=== PATIENT | female | born 2000 | race Hispanic/Latino ===

== ENCOUNTER → 2023-11-18 13:56 | Outpatient (REF) | payer BC, SELFPAY ==
[2023-11-18 15:26] LABS: Urine Albumin Trace (Neg - Trace); Urine Bilirubin Negative (Negative); Urine Character Very Cloudy (Clear); Urine Color Yellow; Urine Glucose Negative (Negative); Urine Ketone Negative (Negative); Urine Leukocyte Trace (Negative); Urine Nitrite Positive (Negative); Urine Occult Blood Negative (Negative); Urine Urobilinogen Negative (Neg - 1+)
[2023-11-18 15:52] LABS: Urine Bacteria Moderate (Negative); Urine Red Blood Cell 0-2 /HPF (0-2); Urine White Cell 40-50 /HPF (0-5)
== END ==
LOC: CLAB 13:56
PROVIDERS: ATTENDING PHYSICIAN Obstetrics & Gynecology
DX: Z34.90 Encounter for supervision of normal pregnancy, unspecified, unspecified trimester (principal)
CPT/HCPCS: 81003; 81015; 87077; 87086; 87186

== ENCOUNTER → 2024-01-24 13:09 | Outpatient (REF) | payer BC, SELFPAY ==
[2024-01-24 16:35] LABS: % Basophils 0.2 % (0-2); % Eosinophils 0.7 % (0-6); % Lymphocytes 11.8 % (20.5-51.1); % Monocytes 5.3 % (1.7-9.3); Absolute Eosinophils 0.1 10^3/uL (0-0.7); Absolute Immature Granulocytes 0.2 10^3/uL (0-0.05); Absolute Lymphocytes 1.9 10^3/uL (1.2-3.4); Absolute Monocytes 0.9 10^3/uL (0.1-0.6); Absolute Neutrophils 13.2 10^3/uL (1.4-6.5); Hemoglobin 9.5 g/dL (12.0-16.0); Mean Corp Hgb Conc. 31.7 g/dL (33.0-37.0); Mean Corpuscular Hgb 25.9 pg (27.0-31.0); Mean Corpuscular Volume 81.7 fL (81.0-99.0); Mean Platelet Volume 11.6 fL (7.4-10.4); Nucleated Red Blood Cells % 0 %; Platelet Count 273 10^3/uL (130-400); Red Blood Cell Count 3.67 10^6/uL (4.20-5.40); Red Cell Dist. Width 14.1 % (11.5-14.5); White Blood Cell Count 16.3 10^3/uL (4.8-10.8)
[2024-01-24 16:58] LABS: 1 Hour after 50gm 86 mg/dl
[2024-01-27 17:19] LABS: Syphilis/T. pallidum Ab Reflex Negative (Negative)
== END ==
LOC: REG 13:09
PROVIDERS: ATTENDING PHYSICIAN Obstetrics & Gynecology
DX: Z34.90 Encounter for supervision of normal pregnancy, unspecified, unspecified trimester (principal)
CPT/HCPCS: 36415; 82950; 85025; 86780

== ENCOUNTER → 2024-03-09 13:26 | Outpatient (REF) | payer BC, OTHER, SELFPAY ==
[2024-03-09 14:35] LABS: Hematocrit 33.8 % (37.0-47.0); Hemoglobin 10.8 g/dL (12.0-16.0); Mean Corpuscular Hgb 25.5 pg (27.0-31.0); Mean Corpuscular Volume 79.9 fL (81.0-99.0); Mean Platelet Volume 11.9 fL (7.4-10.4); Platelet Count 228 10^3/uL (130-400); Red Blood Cell Count 4.23 10^6/uL (4.20-5.40); White Blood Cell Count 16.6 10^3/uL (4.8-10.8)
[2024-03-09 14:56] LABS: Iron 62 ug/dl (37-170)
[2024-03-09 15:05] LABS: Percent Saturation 12 % (20-50); Total Iron Binding Capacity 507 ug/dl (265-497)
[2024-03-09 15:32] LABS: Ferritin 8.3 ng/ml (6.24-137)
== END ==
LOC: REG 13:26
PROVIDERS: ATTENDING PHYSICIAN Obstetrics & Gynecology
DX: E61.1 Iron deficiency (principal)
CPT/HCPCS: 36415; 82728; 83540; 83550; 85027

== ENCOUNTER 2024-04-02 21:13 | Observation (INO) | payer BC, OTHER, SELFPAY ==
[2024-04-02 21:25] VITALS: BP 115/66; BMI 35.4
[2024-04-02 22:05] LABS: Hematocrit 29.2 % (37.0-47.0); Hemoglobin 9.8 g/dL (12.0-16.0); Mean Corp Hgb Conc. 33.6 g/dL (33.0-37.0); Mean Corpuscular Hgb 25.3 pg (27.0-31.0); Mean Corpuscular Volume 75.3 fL (81.0-99.0); Mean Platelet Volume 11.6 fL (7.4-10.4); Platelet Count 281 10^3/uL (130-400); Red Blood Cell Count 3.88 10^6/uL (4.20-5.40); Red Cell Dist. Width 16.3 % (11.5-14.5); White Blood Cell Count 14.7 10^3/uL (4.8-10.8)
[2024-04-02 22:06] LABS: Urine Albumin Trace (Neg - Trace); Urine Bilirubin Negative (Negative); Urine Character Clear (Clear); Urine Color Yellow; Urine Glucose Negative (Negative); Urine Ketone Negative (Negative); Urine Leukocyte Negative (Negative); Urine Nitrite Negative (Negative); Urine Occult Blood Negative (Negative); Urine Specific Gravity 1.015 (<1.030); Urine Urobilinogen Negative (Neg - 1+)
[2024-04-02 22:22] LABS: ALT (SGPT) 14 U/L (0-35); AST (SGOT) 23 U/L (14-36); Albumin 3.3 g/dl (3.5-5.0); Alkaline Phosphatase 138 U/L (38-126); Blood Urea Nitrogen 8 mg/dl (7-17); Calcium 8.8 mg/dl (8.4-10.2); Carbon Dioxide 19 mmol/L (22-30); Chloride 108 mmol/L (98-107); Estimated Creatinine Clearance > 125 ml/min; Glucose 95 mg/dl (70-99); Potassium 3.8 mmol/L (3.5-5.1); Sodium 132 mmol/L (135-145); Total Bilirubin 0.2 mg/dl (0.2-1.3); Total Protein 6.1 g/dl (6.3-8.2); Uric Acid 4.4 mg/dl (2.5-6.2); eGFR > 60.00
[2024-04-02 22:31] LABS: Protein/creatinine Ratio 0.1; Urine Protein 9 mg/dl
== END 2024-04-02 23:09 | disposition home or self-care (01) ==
LOC: LDRP 21:13
PROVIDERS: ADMITTING PHYSICIAN Obstetrics & Gynecology
DX: O12.03 Gestational edema, third trimester (principal); Z3A.36 36 weeks gestation of pregnancy
CPT/HCPCS: 80053; 81003; 82570; 84156; 84550; 85027; G0378

== ENCOUNTER → 2024-04-05 13:41 | Outpatient (REF) | payer BC, OTHER, SELFPAY | LOC: CLAB 13:41 | PROVIDERS: ATTENDING PHYSICIAN Obstetrics & Gynecology | DX: Z34.90 Encounter for supervision of normal pregnancy, unspecified, unspecified trimester (principal) | CPT/HCPCS: 87070 ==

== ENCOUNTER 2024-05-07 13:49 | Inpatient (IN) | payer BC, OTHER, SELFPAY ==
[2024-05-07 11:30] VITALS: BMI 39.1
[2024-05-07 11:33] VITALS: BP 131/72
[2024-05-07 15:26] LABS: Hematocrit 31.7 % (37.0-47.0); Hemoglobin 10.3 g/dL (12.0-16.0); Mean Corp Hgb Conc. 32.5 g/dL (33.0-37.0); Mean Corpuscular Hgb 25.1 pg (27.0-31.0); Mean Corpuscular Volume 77.3 fL (81.0-99.0); Mean Platelet Volume 12.2 fL (7.4-10.4); Platelet Count 237 10^3/uL (130-400); Red Cell Dist. Width 18.6 % (11.5-14.5); White Blood Cell Count 14.1 10^3/uL (4.8-10.8)
[2024-05-07] MEDS: CYTOTEC 50 MICROGRAM VAG (15:33)
[2024-05-07] MEDS: CYTOTEC 50 MICROGRAM PO (21:06)
[2024-05-07] MEDS: PHENERGAN 50.5 MG IV (23:34)
[2024-05-07] MEDS: MORPHINE SULFATE 2 MG IV (23:35)
[2024-05-08] MEDS: LR 1000 IV ×2 (01:00→02:49)
[2024-05-08] MEDS: SUBLIMAZE 100 MCG EPIDURAL (01:03)
[2024-05-08] MEDS: FENTANYL/BUPIVACAINE 100 EPIDURAL (01:03)
[2024-05-08 03:27] LABS: Cord ABG Comment CORD BLOOD
[2024-05-08 03:30] LABS: B.E. Cord ABG -6.7 mMOL/L; HCO3 Cord ABG 20.2 mmol/L; PCO2 Cord ABG 44 mmHg; PO2 Cord ABG 22 mmHg; pH Cord ABG 7.27
[2024-05-08 03:34] LABS: B.E. Cord ABG -6.9 mMOL/L; HCO3 Cord ABG 22.5 mmol/L; O2 Saturation % Cord ABG 13.7 %; PCO2 Cord ABG 59 mmHg; PO2 Cord ABG 10 mmHg; pH Cord ABG 7.19
[2024-05-08] MEDS: ZITHROMAX INFUSION 250 IV (03:50)
[2024-05-08] MEDS: TORADOL 15 MG IV ×4 (05:31→23:00)
[2024-05-08] MEDS: PITOCIN 30 UNITS/NSS 500 ML IV (09:38)
[2024-05-08] MEDS: PRENATAL PLUS 1 TABLET PO (11:15)
[2024-05-08] MEDS: FEOSOL 325 MG PO (11:15)
[2024-05-08] MEDS: TORADOL IV (17:28)
[2024-05-09 05:59] LABS: Hemoglobin 9.1 g/dL (12.0-16.0); Mean Corp Hgb Conc. 32.5 g/dL (33.0-37.0); Mean Corpuscular Hgb 25.8 pg (27.0-31.0); Mean Corpuscular Volume 79.3 fL (81.0-99.0); Mean Platelet Volume 12.4 fL (7.4-10.4); Platelet Count 230 10^3/uL (130-400); Red Blood Cell Count 3.53 10^6/uL (4.20-5.40); Red Cell Dist. Width 18.5 % (11.5-14.5); White Blood Cell Count 19.6 10^3/uL (4.8-10.8)
[2024-05-09] MEDS: MOTRIN 600 MG PO ×3 (06:28→20:11)
[2024-05-09] MEDS: SENOKOT-S 1 TABLET PO (06:29)
[2024-05-09] MEDS: FEOSOL 325 MG PO (07:38)
[2024-05-09] MEDS: PRENATAL PLUS 1 TABLET PO (07:38)
[2024-05-09] MEDS: TYLENOL 650 MG PO ×2 (08:32→16:47)
[2024-05-10] MEDS: FEOSOL 325 MG PO (07:54)
[2024-05-10] MEDS: PRENATAL PLUS 1 TABLET PO (07:54)
[2024-05-10] MEDS: MOTRIN 600 MG PO ×2 (08:40→16:56)
[2024-05-10] MEDS: TYLENOL 650 MG PO (08:40)
[2024-05-11] MEDS: MOTRIN 600 MG PO (00:26)
[2024-05-11] MEDS: FEOSOL 325 MG PO (07:58)
[2024-05-11] MEDS: PRENATAL PLUS 1 TABLET PO (07:58)
[2024-05-11] MEDS: SENOKOT-S 1 TABLET PO (07:59)
[2024-05-11 12:09] LABS: Syphilis/T. pallidum Ab Reflex Negative (Negative)
[2024-05-11] MEDS: TYLENOL 650 MG PO (12:39)
== END 2024-05-11 14:00 | disposition home or self-care (01) | DRG 788 ==
LOC: LDRP 13:49
PROVIDERS: ADMITTING PHYSICIAN Obstetrics & Gynecology
PROC: 3E0P7VZ Introduction of Hormone into Female Reproductive, Via Natural or Artificial Opening (ICD-10-PCS; 2024-05-07)
PROC: 3E0DXGC Introduction of Other Therapeutic Substance into Mouth and Pharynx, External Approach (ICD-10-PCS; 2024-05-07)
PROC: 10D00Z1 Extraction of Products of Conception, Low, Open Approach (ICD-10-PCS; 2024-05-08)
PROC: 6A550ZT Pheresis of Cord Blood Stem Cells, Single (ICD-10-PCS; 2024-05-08)
DX: O76 Abnormality in fetal heart rate and rhythm complicating labor and delivery (principal); O48.0 Post-term pregnancy; Z3A.41 41 weeks gestation of pregnancy; Z37.0 Single live birth; O90.81 Anemia of the puerperium; D64.9 Anemia, unspecified; O99.52 Diseases of the respiratory system complicating childbirth; J45.990 Exercise induced bronchospasm; Z83.3 Family history of diabetes mellitus; Z82.49 Family history of ischemic heart disease and other diseases of the circulatory system; Z91.040 Latex allergy status; Z14.8 Genetic carrier of other disease
CPT/HCPCS: 88307; 59025; 76815; 82803; 85027; 86780; 86850; 86900; 86901

== ENCOUNTER 2025-05-12 21:13 | Emergency (ER) | payer BC, OTHER, SELFPAY ==
[2025-05-12 21:15] VITALS: BP 123/69
[2025-05-12 21:37] LABS: Hematocrit 35.2 % (37.0-47.0); Hemoglobin 11.6 g/dL (12.0-16.0); Mean Corp Hgb Conc. 33.0 g/dL (33.0-37.0); Mean Corpuscular Volume 79.8 fL (81.0-99.0); Nucleated Red Blood Cells % 0 %; Platelet Count 281 10^3/uL (130-400); Red Cell Dist. Width 13.2 % (11.5-14.5)
[2025-05-12 21:50] VITALS: BMI 25.6
--- NOTE | 2025-05-12 22:09 | ED.GENMED ---
History of Present Illness
<GABRIELLA Acuña - Last Filed: 05/13/25 01:06>
General
Chief Complaint: Problems
Source: patient
Exam Limitations: none
Time Seen by Provider: 05/12/25 21:57
History of Present Illness
History of Present Illness:
Patient is a 24 y/o F, , who is about 11-12 weeks presents to the ED for vaginal bleeding x 4 days. Patient states the bleeding began 4 days ago as intermittent spotting and was a brown color. The bleeding gradually increased in
volume over the past 3 days along with becoming more bright red. Yesterday the patient noticed a 1cm x 1cm clot and a larger clot today about 3cm x 3cm which prompted her to come to ED for evaluation. Bleeding is accompanied by intermittent RLQ and
LLQ pain rated 6/10 and abdominal cramping. Patient follows with [facility] and has an appoint for her first trimester US 05/29/25. Patient has a 1 year old daughter, born without complication by section at 42 weeks after
attempted induction. Patient denies fever, headache, dizziness, weight loss, vomiting, nausea, chest pain, palpitations, SOB, dysuria, and lower extremity swelling.
Past History
<GABRIELLA Acuña - Last Filed: 05/13/25 01:06>
Past History
ED Past Medical History: Asthma
ED Past Surgical History: None
Social History
Tobacco: Non-smoker
Drug: Marijuana
Living: with family
Review of Systems
<GABRIELLA Acuña - Last Filed: 05/13/25 01:06>
Review of Systems
Allergies reviewed?: Yes
Constitutional: Denies fever or weight loss
Respiratory: Denies trouble breathing
Cardiac: Denies chest pain or palpitations
ABD/GI: Reports abdominal pain; Denies nausea or vomiting
: Reports bleeding; Denies dysuria
Neurological: Denies dizzy, headache or weakness
Phy Exam
<Cleo Cotto [facility] - Last Filed: 05/13/25 01:06>
General Physical Exam
General Presentation: well appearing and no apparent distress
General age: appears stated age
General Skin: warm and dry
General Habitus: normal
General Mental: alert
General Hydration: appears well hydrated
Cardiovascular Exam
Cardiovascular Exam: regular rate/rhythm, no edema and no murmur
Heart Sounds: normal
Pulmonary Exam
Pulmonary Exam: lungs clear
Gastrointestinal Exam
Gastrointestinal Exam: normal bowel sounds, soft and non distended
Palpation: left upper quadrant: No tenderness, left lower quadrant: Moderate tenderness, right upper quadrant: No tenderness and right lower quadrant: Moderate tenderness
Abdominal Scars: horizontal suprapubic ( section )
Course
<Cleo Cotto [facility] - Last Filed: 05/13/25 01:06>
Orders/Labs/Results
Orders:
Orders
05/12/25 21:17
US 1st Trimester Urgent
Comment:
Reason For Exam: bleeding
05/12/25 21:29
Type+Screen Urgent
Beta HCG Quantitative Urgent
Is this a screen?: No
Complete Blood Count/With Diff Urgent
Abnormal Lab Results
05/12/25
21:29
WBC 14.3 H 10^3/uL
(4.8-10.8)
Hgb 11.6 L g/dL
(12.0-16.0)
Hct 35.2 L %
(37.0-47.0)
MCV 79.8 L fL
(81.0-99.0)
MCH 26.3 L pg
(27.0-31.0)
MPV 11.2 H fL
(7.4-10.4)
Absolute Neuts (auto) 10.2 H 10^3/uL
(1.4-6.5)
Absolute Monos (auto) 0.7 H 10^3/uL
(0.1-0.6)
05/12/25 21:29
Vital Signs
Initial and Last Documented VS:
Initial Vital Signs
Temp Pulse Resp BP Pulse Ox
98.2 F 82 16 123/69 95
05/12/25 21:15 05/12/25 21:15 05/12/25 21:15 05/12/25 21:15 05/12/25 21:15
Last Documented Vital Signs
Temp Pulse Resp BP Pulse Ox
98.2 F 71 17 113/76 99
05/12/25 21:15 05/12/25 23:46 05/12/25 23:46 05/12/25 23:46 05/12/25 23:46
Information
Weeks gestation: Weeks: (9)
Location: Location: (uterus )
<Elias Matute, DO - Last Filed: 05/13/25 00:41>
Orders/Labs/Results
Orders:
Orders
05/12/25 21:17
US 1st Trimester Urgent
Comment:
Reason For Exam: bleeding
05/12/25 21:29
Type+Screen Urgent
Beta HCG Quantitative Urgent
Is this a screen?: No
Complete Blood Count/With Diff Urgent
Abnormal Lab Results
05/12/25
21:29
WBC 14.3 H 10^3/uL
(4.8-10.8)
Hgb 11.6 L g/dL
(12.0-16.0)
Hct 35.2 L %
(37.0-47.0)
MCV 79.8 L fL
(81.0-99.0)
MCH 26.3 L pg
(27.0-31.0)
MPV 11.2 H fL
(7.4-10.4)
Absolute Neuts (auto) 10.2 H 10^3/uL
(1.4-6.5)
Absolute Monos (auto) 0.7 H 10^3/uL
(0.1-0.6)
05/12/25 21:29
Vital Signs
Initial and Last Documented VS:
Initial Vital Signs
Temp Pulse Resp BP Pulse Ox
98.2 F 82 16 123/69 95
05/12/25 21:15 05/12/25 21:15 05/12/25 21:15 05/12/25 21:15 05/12/25 21:15
Last Documented Vital Signs
Temp Pulse Resp BP Pulse Ox
98.2 F 71 17 113/76 99
05/12/25 21:15 05/12/25 23:46 05/12/25 23:46 05/12/25 23:46 05/12/25 23:46
<GABRIELLA Acuña - Last Filed: 05/13/25 01:06>
MDM/Problems Addressed
Differential Diagnosis Includes:
Differential Diagnosis includes but is not limited to:
-Spotting, hemorrhage in early
-ectopic
-threatened
-early pregancy loss
MDM/Problems Addressed:
1. 1st trimester vaginal bleeding - incomplete miscarriage
-beta hCG quantitative, blood type and screen, Ultrasound 1st trimester
-Tylenol for cramping, abdominal pain
- Follow up with OB
<GABRIELLA Acuña - Last Filed: 05/13/25 01:06>
*Pulse Oximetry
SaO2: 95
Oxygen Mode of Delivery: Room air
<Elias Matute DO - Last Filed: 05/13/25 00:41>
*Radiology
Radiology exam reviewed: radiology read reviewed
*Pulse Oximetry
Patient hypoxic: no
*Critical Care Note
Total Time (30-74mins, 75-104mins- exclusive of procedures): Not Applicable
ED Attending Note
<GABRIELLA Acuña - Last Filed: 05/13/25 01:06>
-
Portions of this chart may have been created with voice recognition software.� Occasional wrong word or��sound alike� substitutions may have occurred due to the inherent limitations of voice recognition software.
<Elias Matute DO - Last Filed: 05/13/25 00:41>
ED Attending Note
Patient seen and examined by attending physician: Yes
I performed a history and physical exam of patient and discussed management with resident, I reviewed resident's note and agree with documented findings and plan of care.: Yes
ED Attending Note:
Note:
CHIEF COMPLAINT(S)
Vaginal bleeding and cramping in early .
HISTORY OF PRESENT ILLNESS
The patient is a 24-year-old female with a history of vaginal bleeding and cramping. The symptoms began on , and the bleeding has become heavier today. She discovered she was approximately nine weeks ago. The patient does not report
having an patient admitting clerk-housing liaison whom she regularly visits. Upon investigation, there is no evidence of an ectopic , which is a significant concern in early bleeding due to its potential life-threatening nature. An ultrasound
indicates a non-viable , as there was a pole visible, but no heartbeat detected, suggesting miscarriage, which explains the bleeding.
Additional conversation with the patient revealed that she has a previous healthy resulting in a child who is now one year old, which offers reassurance about her future reproductive outlook. The patient is concerned about the commonality
and implications of miscarriages.
SOCIAL DETERMINANTS AFFECTING HEALTH
The patient mentioned that her boyfriend is aware of the and is currently caring for their wtl-cegp-win child. There was no indication of any issues, but the context implies some family support.
PLAN
1. Advise the patient to use acetaminophen for cramping and to ensure adequate fluid intake.
2. Instruct the patient to follow up with her healthcare provider or an patient admitting clerk-housing liaison to confirm the complete resolution of the miscarriage and ensure that there are no retained products of conception.
3. Provide the patient with a copy of all medical reports for her reference and future consultation.
4. Discuss anticipated progression of symptoms, including the possibility of increased bleeding and cramping as the gestational sac is passed.
DIFFERENTIAL DIAGNOSIS
The Differential Diagnosis includes, in no particular order and is not limited to:
1. Miscarriage
2. Ectopic
3. Subchorionic hemorrhage
4. Molar
5. Infection (e.g., pelvic inflammatory disease)
6. Cervical polyps
7. Cervical insufficiency
8. Sexual intercourse-related trauma
9. Placental abruption (less likely due to gestational age)
10. Coagulation disorders
Exam
CONSTITUTIONAL Vital signs reviewed, Patient alert and oriented to person, place and time. Well-appearing
HEAD atraumatic, normocephalic.
EYES eyelids normal to inspection, Extraocular muscles intact, Conjunctiva normal, Sclera normal.
NECK normal range of motion, Trachea midline, no jugular venous distention.
RESP no respiratory distress
BACK No obvious deformities
Abdomen nondistended
UPPER EXTREMITY Gross Range of motion normal, gross motor strength normal
LOWER EXTREMITY Gross range of motion normal, Gross motor strength normal
NEURO Speech normal, No focal motor deficits include, Julio Cesar coma scale 15, Memory normal, Cranial Nerves intact to screening exam.
SKIN Skin warm, dry, and normal in color.
PSYCHIATRIC Patient oriented to person place and time, Normal affect.
Disposition:
SUMMARY OF ENCOUNTER
The patient, a 24-year-old female, presented to the emergency department with vaginal bleeding and cramping during early . An ultrasound confirmed a non-viable with a pole, but no heartbeat detected, suggestive of a
miscarriage. There is no clinical evidence of ectopic . The patients blood type is Rh positive, which does not necessitate Rh immunoglobulin administration.
DISPOSITION
Discharge with recommendations for outpatient follow-up.
ASSESSMENT
Non-viable intrauterine with impending miscarriage.
PLAN
1. Recommend use of acetaminophen for cramping.
2. Advise ensuring adequate fluid intake to maintain hydration.
3. Instruct the patient to follow up with her healthcare provider or an patient admitting clerk-housing liaison to ensure complete resolution of the miscarriage and to check for retained products of conception.
4. Discuss the normal progression of symptoms, including the possibility of increased bleeding and cramping.
5. Provide the patient with a copy of all medical reports for future consultation.
INDEPENDENT REVIEW OF LABS AND INTERPRETATION OF TESTS
My independent review of the ultrasound confirms a non-viable due to the absence of heart tones.
PATIENT EDUCATION AND COUNSELING
Discussed the normalcy of miscarriages, which occur in approximately 15-20% of pregnancies. Emphasized that a miscarriage does not infer future reproductive issues. The patient was reassured given the history of a previous healthy .
FOLLOW-UP INSTRUCTIONS
The patient is advised to schedule an outpatient follow-up with an patient admitting clerk-housing liaison to confirm complete miscarriage resolution.
MEDICATION RECONCILIATION
The patient was advised to use acetaminophen for cramping.
MEDICAL DECISION MAKING
-Complexity of Data Reviewed: Chronic conditions affecting care include the patients current symptoms and obstetric history. Differential diagnosis includes miscarriage, ectopic , subchorionic hemorrhage, molar , infection,
cervical polyps, cervical insufficiency, trauma-related bleeding, placental abruption, and coagulation disorders.
-Data:
Category 1
Ultrasound performed indicated a non-viable with no heart tones.
Category 2
None noted.
Category 3
Discussion of management with healthcare provider for outpatient follow-up.
DIAGNOSIS
Missed (O02.1)
Vaginal bleeding in early (O20.0)
Discharge Plan
Departure
Patient Disposition: Home (Routine Discharge)
Date of Disposition: 05/13/25
Time of Disposition: 00:36
Patient with high blood pressure during this ER visit?: No
Discharge Problem:
demise, Incomplete miscarriage
Instructions: Miscarriage (DC)
Prescriptions:
No Action
capsule
1 cap PO DAILY
iron
1 cap PO DAILY
albuterol-budesonide 90-80 mcg/actuation Hfa Aerosol Inhaler
INHALATION
acetaminophen 325 mg Tablet
650 mg PO Q4HPRN PRN (Reason: mild pain) Qty: 0 0RF
sennosides-docusate sodium [Stool Softener-Laxative] 8.6-50 mg Tablet
1 tab PO DAILYPRN PRN (Reason: constipation) Qty: 0 0RF
ibuprofen 600 mg Tablet
600 mg PO Q6HPRN PRN (Reason: cramps) Qty: 40 0RF
simethicone 80 mg Tablet,Chewable
80 mg PO TIDPRN PRN (Reason: flatulence) Qty: 0 0RF
Referrals:
NONE,* [Family Provider, Internal Medicine]
Activity Restrictions/Additional Instructions:
Please see your patient admitting clerk in the next 3 days for follow-up and reevaluation. Use Tylenol for cramping and drink plenty of fluids. Return for persistent intractable bleeding, lightheadedness, passing out episode or any other concerns.
Interventions
Interventions:
*Risk Screen - Suicide Last Done: 05/12/25 21:15
*General Assessment Last Done: 05/12/25 21:15
*Neglect/Abuse Screening Last Done: 05/12/25 21:15
*ED- Fall Risk Assessment Last Done: 05/12/25 21:51
*ED COVID-19 Vaccine History Last Done: 05/12/25 21:51
*Nursing Disposition Last Done: 05/13/25 00:44
ED-Female Genitourinary Assessment Last Done: 05/12/25 21:50
Discharge Date and Time
Discharge Date/Time: 05/13/25 00:45
Print Language: FAROESE
[2025-05-12 22:34] VITALS: BP 122/78
[2025-05-12 23:17] LABS: Beta HCG Quantitative 57378.00 mIU/ml
[2025-05-12 23:46] VITALS: BP 113/76
== END 2025-05-13 00:45 | disposition home or self-care (01) ==
LOC: EMR 21:13
PROVIDERS: Emergency Medicine; EMERGENCY PHYSICIAN Emergency Medicine
DX: O03.4 Incomplete spontaneous abortion without complication (principal); J45.909 Unspecified asthma, uncomplicated
CPT/HCPCS: 99284; 76801; 84702; 85025; 86850; 86900; 86901

== ENCOUNTER 2025-05-14 18:48 | Emergency (ER) | payer BC, OTHER, SELFPAY ==
[2025-05-14 18:54] VITALS: BP 122/76
[2025-05-14 19:28] LABS: Hematocrit 34.5 % (37.0-47.0); Hemoglobin 11.3 g/dL (12.0-16.0); Mean Corp Hgb Conc. 32.8 g/dL (33.0-37.0); Mean Corpuscular Volume 78.8 fL (81.0-99.0); Nucleated Red Blood Cells % 0 %; Platelet Count 261 10^3/uL (130-400); Red Cell Dist. Width 13.1 % (11.5-14.5)
[2025-05-14 19:57] LABS: HCG, Serum Qualitative Screen Positive
[2025-05-14 20:04] LABS: ALT (SGPT) 11 U/L (0-35); AST (SGOT) 18 U/L (14-36); Albumin 4.6 g/dl (3.5-5.0); Alkaline Phosphatase 66 U/L (38-126); Blood Urea Nitrogen 12 mg/dl (7-17); Calcium 9.8 mg/dl (8.4-10.2); Carbon Dioxide 20 mmol/L (22-30); Chloride 107 mmol/L (98-107); Glucose 119 mg/dl (70-99); Potassium 4.5 mmol/L (3.5-5.1); Sodium 138 mmol/L (135-145); Total Protein 7.5 g/dl (6.3-8.2); eGFR > 60.00
--- NOTE | 2025-05-14 20:05 | ED.GENMED ---
History of Present Illness
General
Chief Complaint: Problems
Source: patient
Exam Limitations: none
Time Seen by Provider: 05/14/25 20:01
Nursing documentation reviewed up to this point in time: agreed with
History of Present Illness
History of Present Illness:
Patient to ED wt complaint of vaginal bleeding and severe pelvic cramping. She is approx 10 weeks . SHe was seen in ED yesterday due to bleeding. US confirmed demise. She returns tonight due to cramping.
Past History
Past History
ED Past Medical History: Asthma
ED Past Surgical History: None
Social History
Tobacco: Non-smoker
Drug: Marijuana
Living: with family
Review of Systems
Review of Systems
Allergies reviewed?: Yes
All Other Systems: ROS reviewed and negative except as documented in HPI and ROS
Constitutional: Reports no symptoms
EENT: Reports no symptoms
Respiratory: Reports no symptoms
Cardiac: Reports no symptoms
ABD/GI: Reports no symptoms
: Reports bleeding and other (pelvic cramping)
Musculoskeletal: Reports no symptoms
Skin: Reports no symptoms
Neurological: Reports no symptoms
Psychiatric: Reports no symptoms
Phy Exam
General Physical Exam
General Presentation: moderate distress
General age: appears stated age
General Skin: warm and dry
General Habitus: normal
General Mental: alert
Gastrointestinal Exam
Gastrointestinal Exam: normal bowel sounds, non tender, soft, no organomegaly, no pulsatile mass and non distended
Genitourinary Exam Female
Vaginal Exam: blood
Vaginal Bleeding: moderate
Musculoskeletal Exam
Musculoskeletal Exam: full ROM and neuro vasc intact
Skin Exam
Skin Exam: normal color, warm/dry and no rash
Psychiatric Exam
Psychiatric Exam: normal mood/affect
Course
Orders/Labs/Results
Orders:
Orders
05/14/25 18:56
Test Result ONCE
05/14/25 19:03
Beta HCG Quantitative Urgent
Is this a screen?: No
Comment: ADDON
Complete Blood Count/With Diff Urgent
Comprehensive Metabolic Panel Urgent
HCG, Serum Qualitative Screen Urgent
05/14/25 20:02
Add On- LAB Urgent
Tests Added?: serum HCG quantitative
US Transvaginal Only Urgent
Reason For Exam: bleeding, cramping
05/14/25 20:03
HYDROmorphone [Dilaudid] 0.5 mg IV NOW STA
05/14/25 20:04
0.9% Sodium Chloride 1000 ml [Nss] 1,000 ml IV BOLUS
Ondansetron Injectable [Zofran] 4 mg IV NOW STA
05/14/25 22:31
HYDROmorphone [Dilaudid] 0.25 mg IV NOW STA
Abnormal Lab Results
05/14/25
19:03
WBC 15.3 H 10^3/uL
(4.8-10.8)
Hgb 11.3 L g/dL
(12.0-16.0)
Hct 34.5 L %
(37.0-47.0)
MCV 78.8 L fL
(81.0-99.0)
MCH 25.8 L pg
(27.0-31.0)
MCHC 32.8 L g/dL
(33.0-37.0)
MPV 11.6 H fL
(7.4-10.4)
Abs Immat Gran (auto) 0.1 H 10^3/uL
(0-0.05)
Absolute Neuts (auto) 11.0 H 10^3/uL
(1.4-6.5)
Carbon Dioxide 20 L mmol/L
(22-30)
Creatinine 0.5 L mg/dL
(0.6-1.0)
Glucose 119 H mg/dl
(70-99)
05/14/25 19:03
05/14/25 19:03
Vital Signs
Initial and Last Documented VS:
Initial Vital Signs
Temp Pulse Resp BP Pulse Ox
98 F 79 16 122/76 100
05/14/25 18:54 05/14/25 18:54 05/14/25 18:54 05/14/25 18:54 05/14/25 18:54
Last Documented Vital Signs
Temp Pulse Resp BP Pulse Ox
98 F 72 18 109/74 100
05/14/25 18:54 05/14/25 22:29 05/14/25 22:29 05/14/25 22:29 05/14/25 22:29
Information
Weeks gestation: N/A
Location: N/A
*Pulse Oximetry
SaO2: 100
Oxygen Mode of Delivery: Room air
Patient hypoxic: no
*Critical Care Note
Total Time (30-74mins, 75-104mins- exclusive of procedures): Not Applicable
Update Note
Update Note:
Patient to ED wt complaint of severe cramping. SHe is approx 10 weeks , bleeding started yesterday. demise confirmed by US last PM.SHe was given IV fluids and dilaudid in ED with relief of her pain. US report reviewed with Dr. Irizarry,
as well as lab findings. HCG declining. Will discharge home tonight with short course of pain medication and she will followup with Dr. Irizarry in the office on as scheduled. Given instructions on s/s to reutrn to ED and she is agreeable to
plan.
ED Attending Note
-
Portions of this chart may have been created with voice recognition software.� Occasional wrong word or��sound alike� substitutions may have occurred due to the inherent limitations of voice recognition software.
Discharge Plan
Departure
Patient Disposition: Home (Routine Discharge)
Date of Disposition: 05/14/25
Time of Disposition: 22:20
Patient with high blood pressure during this ER visit?: No
Condition: Good
Covid-19: Not Applicable
Discharge Problem:
Miscarriage
Instructions: Miscarriage (DC)
Prescriptions:
New
oxycodone 5 mg capsule
5 mg PO Q4H PRN (Reason: Pain) Qty: 12 0RF
No Action
capsule
1 cap PO DAILY
iron
1 cap PO DAILY
albuterol-budesonide 90-80 mcg/actuation Hfa Aerosol Inhaler
INHALATION
acetaminophen 325 mg Tablet
650 mg PO Q4HPRN PRN (Reason: mild pain) Qty: 0 0RF
sennosides-docusate sodium [Stool Softener-Laxative] 8.6-50 mg Tablet
1 tab PO DAILYPRN PRN (Reason: constipation) Qty: 0 0RF
ibuprofen 600 mg Tablet
600 mg PO Q6HPRN PRN (Reason: cramps) Qty: 40 0RF
simethicone 80 mg Tablet,Chewable
80 mg PO TIDPRN PRN (Reason: flatulence) Qty: 0 0RF
Referrals:
NONE,* [Family Provider, Internal Medicine]
Mohini Irizarry MD [Active, Gynecology] - Keep scheduled appt
Activity Restrictions/Additional Instructions:
Return to the emergency department immediately for any changes in/worsening of your symptoms.
Interventions
Interventions:
ED-Female Genitourinary Assessment Last Done: 05/14/25 19:40
Discharge Date and Time
Print Language: AMHARIC
[2025-05-14] MEDS: NSS 1000 IV (20:18)
[2025-05-14] MEDS: ZOFRAN 4 MG IV (20:18)
[2025-05-14] MEDS: DILAUDID 0.5 MG IV (20:18)
[2025-05-14 21:05] LABS: Beta HCG Quantitative 32117.00 mIU/ml
[2025-05-14 22:29] VITALS: BP 109/74
[2025-05-14] MEDS: DILAUDID 0.25 MG IV (22:33)
== END 2025-05-14 22:38 | disposition home or self-care (01) ==
LOC: EMR 18:48
PROVIDERS: EMERGENCY PHYSICIAN Emergency Medicine
DX: O03.9 Complete or unspecified spontaneous abortion without complication (principal); Z3A.10 10 weeks gestation of pregnancy; J45.909 Unspecified asthma, uncomplicated
CPT/HCPCS: 99284; 96374; 96375; 96376; 96361; 76817; 80053; 84702; 84703; 85025

== ENCOUNTER 2025-05-16 02:08 | Emergency (ER) | payer BC, OTHER, SELFPAY ==
[2025-05-16 02:13] VITALS: BP 134/77
[2025-05-16] MEDS: ZOFRAN 4 MG IV (02:38)
[2025-05-16] MEDS: DILAUDID 0.5 MG IV ×3 (02:38→03:57)
[2025-05-16 02:42] LABS: Hematocrit 35.5 % (37.0-47.0); Hemoglobin 11.4 g/dL (12.0-16.0); Mean Corp Hgb Conc. 32.1 g/dL (33.0-37.0); Mean Corpuscular Volume 78.0 fL (81.0-99.0); Nucleated Red Blood Cells % 0 %; Platelet Count 291 10^3/uL (130-400); Red Cell Dist. Width 13.2 % (11.5-14.5)
[2025-05-16 02:43] VITALS: BP 120/75
[2025-05-16 03:00] VITALS: BP 140/85
[2025-05-16 03:04] LABS: ALT (SGPT) 12 U/L (0-35); AST (SGOT) 17 U/L (14-36); Albumin 4.7 g/dl (3.5-5.0); Alkaline Phosphatase 63 U/L (38-126); Blood Urea Nitrogen 10 mg/dl (7-17); Calcium 9.9 mg/dl (8.4-10.2); Carbon Dioxide 19 mmol/L (22-30); Chloride 110 mmol/L (98-107); Glucose 100 mg/dl (70-99); Potassium 3.7 mmol/L (3.5-5.1); Sodium 139 mmol/L (135-145); Total Protein 7.6 g/dl (6.3-8.2); eGFR > 60.00
[2025-05-16 03:21] LABS: Beta HCG Quantitative 29802.00 mIU/ml
[2025-05-16] MEDS: TORADOL 15 MG IV (03:30)
[2025-05-16 04:00] VITALS: BP 107/70
--- NOTE | 2025-05-16 04:17 | ED.GENMED ---
History of Present Illness
General
Chief Complaint: Problems
Source: patient
Exam Limitations: none
Time Seen by Provider: 05/16/25 02:23
Nursing documentation reviewed up to this point in time: agreed with
History of Present Illness
History of Present Illness:
24-year-old female presenting to the emergency department today roughly 10 weeks with ongoing miscarriage diagnosed during last 2 visits here to the ER last year yesterday showing demise on ultrasound. Has had ongoing severe pain. Bleeding
has decreased. No contents were seen.
Past History
Past History
ED Past Medical History: Asthma
ED Past Surgical History: None
Social History
Tobacco: Non-smoker
Drug: Marijuana
Living: with family
Review of Systems
Review of Systems
Allergies reviewed?: Yes
All Other Systems: ROS reviewed and negative except as documented in HPI and ROS
Phy Exam
Physical Exam
Physical Exam:
GENERAL: Alert , patient yelling in pain
EYE: pupils equal and reactive
NECK: Supple, no significant adenopathy.
ENT: o/p clr, mmm.
CARDIAC: Regular rate and rhythm .
LUNGS: Clear breath sounds bilaterally, no acute respiratory distress, no wheezes/rales/rhonchi
ABDOMEN: Soft, without focal tenderness, no r/g, no cvat
NEUROLOGICAL: Alert and oriented, no focal neuro deficits
SKIN: Warm and dry, skin intact.
MUSCULOSKELETAL: No edema, well perfused.
PSYCH: Normal and appropriate interaction.
Course
Orders/Labs/Results
Orders:
Orders
05/16/25 02:24
Beta HCG Quantitative Urgent
Is this a screen?: No
Comment: pt is 10 weeks , miscarrying
Complete Blood Count/With Diff Urgent
Comprehensive Metabolic Panel Urgent
05/16/25 02:32
HYDROmorphone [Dilaudid] 0.5 mg IV NOW STA
Ondansetron Injectable [Zofran] 4 mg IV NOW STA
05/16/25 02:54
HYDROmorphone [Dilaudid] 0.5 mg IV NOW STA
05/16/25 02:55
Type+Screen Urgent
BBK Wristband Number:
05/16/25 03:17
Ketorolac [Toradol] 15 mg IV NOW STA
05/16/25 03:53
HYDROmorphone [Dilaudid] 0.5 mg IV NOW STA
Abnormal Lab Results
05/16/25
02:24
WBC 15.0 H 10^3/uL
(4.8-10.8)
Hgb 11.4 L g/dL
(12.0-16.0)
Hct 35.5 L %
(37.0-47.0)
MCV 78.0 L fL
(81.0-99.0)
MCH 25.1 L pg
(27.0-31.0)
MCHC 32.1 L g/dL
(33.0-37.0)
MPV 11.1 H fL
(7.4-10.4)
Absolute Neuts (auto) 9.4 H 10^3/uL
(1.4-6.5)
Absolute Lymphs (auto) 4.4 H 10^3/uL
(1.2-3.4)
Absolute Monos (auto) 0.9 H 10^3/uL
(0.1-0.6)
Chloride 110 H mmol/L
(98-107)
Carbon Dioxide 19 L mmol/L
(22-30)
Glucose 100 H mg/dl
(70-99)
05/16/25 02:24
05/16/25 02:24
Vital Signs
Initial and Last Documented VS:
Initial Vital Signs
Pulse Resp BP Pulse Ox
67 20 134/77 100
05/16/25 02:13 05/16/25 02:13 05/16/25 02:13 05/16/25 02:13
Last Documented Vital Signs
Pulse Resp BP Pulse Ox
67 20 107/70 100
05/16/25 02:13 05/16/25 02:13 05/16/25 04:00 05/16/25 04:18
Information
Weeks gestation: Weeks: (10)
Location: Location:
MDM/Problems Addressed
MDM/Problems Addressed:
24-year-old female presenting to the emergency department today with concerns of ongoing pelvic pain in setting of miscarriage. Bleeding decreasing today. Patient upon arrival labs were obtained showing white count that was elevated but unchanged
from previous decreasing hCG level. Was given multiple doses of Dilaudid Case was then discussed with OB concerning the patient's ongoing significant discomfort.
OB saw the patient did a pelvic examination and removed the contents that was stuck in the cervix. Patient had significant and rapid improvement of symptoms at that time. Stable for outpatient management at this point. Return precautions
given.
*Pulse Oximetry
SaO2: 100
Oxygen Mode of Delivery: Room air
Patient hypoxic: no (100)
*Critical Care Note
Total Time (30-74mins, 75-104mins- exclusive of procedures): Not Applicable
ED Attending Note
-
Portions of this chart may have been created with voice recognition software.� Occasional wrong word or��sound alike� substitutions may have occurred due to the inherent limitations of voice recognition software.
Discharge Plan
Departure
Patient Disposition: Home (Routine Discharge)
Date of Disposition: 05/16/25
Time of Disposition: 04:55
Patient with high blood pressure during this ER visit?: No
Condition: Good
Covid-19: Not Applicable
Discharge Problem:
Miscarriage
Instructions: Miscarriage (DC)
Prescriptions:
No Action
capsule
1 cap PO DAILY
iron
1 cap PO DAILY
albuterol-budesonide 90-80 mcg/actuation Hfa Aerosol Inhaler
INHALATION
acetaminophen 325 mg Tablet
650 mg PO Q4HPRN PRN (Reason: mild pain) Qty: 0 0RF
sennosides-docusate sodium [Stool Softener-Laxative] 8.6-50 mg Tablet
1 tab PO DAILYPRN PRN (Reason: constipation) Qty: 0 0RF
ibuprofen 600 mg Tablet
600 mg PO Q6HPRN PRN (Reason: cramps) Qty: 40 0RF
simethicone 80 mg Tablet,Chewable
80 mg PO TIDPRN PRN (Reason: flatulence) Qty: 0 0RF
oxycodone 5 mg capsule
5 mg PO Q4H PRN (Reason: Pain) Qty: 12 0RF
Referrals:
NONE,* [Family Provider, Internal Medicine]
Activity Restrictions/Additional Instructions:
You came to the emergency department today with concerns of pelvic discomfort in setting of miscarriage. You had an door furring installer see you that removed the contents. Please follow-up closely as an outpatient. Return for any worsening, new or
concerning symptoms.
Interventions
Interventions:
*Risk Screen - Suicide Last Done: 05/16/25 02:19
*Neglect/Abuse Screening Last Done: 05/16/25 02:19
*ED- Fall Risk Assessment Last Done: 05/16/25 02:19
*ED COVID-19 Vaccine History Last Done: 05/16/25 02:19
ED-Female Genitourinary Assessment Last Done: 05/16/25 02:30
Discharge Date and Time
Print Language: SERBIAN
--- NOTE | 2025-05-16 07:45 | CON.MD ---
Consultation - Medical
-
24yo who should be 10+ weeks presented to the ER today due to severe cramping that started around 1AM. She has known miscarriage diagnosed earlier this week. She was seen in the ER twice in the last week due to bleeding. Most recently was 05/14.
U/S at that time showed what appears to be a gestational sac in the CRISTOBAL/upper cervix. She was having heavy bleeding on Tuesday/Tuesday but now bleeding has decreased, her main complaint is the pain. Per mom and nurse patient has been writhing around
in the bed and not responding to dilaudid or Toradol.
PMHx:Asthma
PSHx: C/S x1
POBHx: 04/2024: C/S for NRFHT
SHx: social etoh, no ill/tob
FHx: PGM- DM, HTN
Meds: Albuterol inh prn
All: NKDA
ROS Per HPI
Vitals: see below
Gen: moving around, moaning in bed due to discomfort
SSE: moderate amount of blood in vagina. Purple/red sac and tissue noted protruding from the cervical os. Grasped with ring forceps and removed and discarded. Cervix appears 2cm dilated externally
A/P: 24yo with incomplete AB
explained to patient and mom that her pain is likely due to contractions related to a distended cervix from the products of conception. With her permission I was able to remove the POC and patient immediately felt better. REviewed bleeding and
cramping expectations now.
ADvised she f/u in our office within 2 weeks at which point she would like to discuss control.
25 minutes spent with patient, chart review and exam.
Consultation
-
Date/Time Consultation Requested: 05/16/25339
Date/Time Consultation Performed: 05/16/25429
Requesting Provider: Kj Marroquin
Performing Provider: Francis
Reason for Consultation: inccomplete , Pain
Vital Signs / Labs
-
Vital Signs and Labs:
Pulse Resp BP Pulse Ox
67 20 107/70 100
05/16/25 02:13 05/16/25 02:13 05/16/25 04:00 05/16/25 04:18
05/16/25 02:24
05/16/25 02:24
05/16/25
02:24
WBC 15.0 H
Hgb 11.4 L
Hct 35.5 L
MCV 78.0 L
MCH 25.1 L
MCHC 32.1 L
MPV 11.1 H
Absolute Neuts (auto) 9.4 H
Absolute Lymphs (auto) 4.4 H
Absolute Monos (auto) 0.9 H
Chloride 110 H
Carbon Dioxide 19 L
Glucose 100 H
== END 2025-05-16 05:04 | disposition home or self-care (01) ==
LOC: EMR 02:08
PROVIDERS: EMERGENCY PHYSICIAN Emergency Medicine
DX: O03.4 Incomplete spontaneous abortion without complication (principal); J45.909 Unspecified asthma, uncomplicated; Z82.49 Family history of ischemic heart disease and other diseases of the circulatory system; Z83.3 Family history of diabetes mellitus
CPT/HCPCS: 99283; 96374; 96375; 96376; 80053; 84702; 85025